=== PATIENT | female | born 1940 | race Caucasian/White ===

== ENCOUNTER 2017-08-24 14:16 | Emergency (ER) | payer OTHER, MEDICAID ==
[~2017-08-24] VITALS: Ht 165.1 cm; Wt 59.9 kg
[2017-08-24 14:28] VITALS: Ht 165.1 cm; Wt 59.9 kg
[2017-08-24 16:48] VITALS: BP 135/74
[2017-08-25] MEDS ORDERED: LASIX40 MG PO (05:06)
[2017-08-25] MEDS ORDERED: BENAZEPRIL HYDR20 M1 PO (05:06)
[2017-08-25] MEDS ORDERED: METOPROLOL SUCC50 M2 PO (05:07)
[2017-08-25] MEDS ORDERED: ALDACTONE25 MG PO (05:08)
== END 2017-08-24 16:48 | disposition home or self-care (01) ==
LOC: ED 14:16
DX: I16.0 Hypertensive urgency (principal); Z88.0 Allergy status to penicillin; Z88.5 Allergy status to narcotic agent

== ENCOUNTER 2017-08-25 02:01 | Inpatient (IN) | payer OTHER, MEDICAID ==
[~2017-08-25] VITALS: Ht 154.9 cm; Wt 56.7 kg
[2017-08-25 03:48] LABS: BASOPHIL % 0.3 % (0-2)
[2017-08-25 03:57] LABS: CALCIUM 7.8 mg/dL (8.5-10.1); CHLORIDE SERUM 98 mmol/L (98-107); CREATININE SERUM 0.9 mg/dL (0.6-1.0); GLUCOSE SERUM 89 mg/dL (74-106); POTASSIUM SERUM 4.1 mmol/L (3.5-5.1); SODIUM SERUM 128 mmol/L (136-145)
[2017-08-25 04:02] LABS: PLATELET COUNT 323 x10^3mcL (130-400)
[2017-08-25 04:06] LABS: RED CELL DISTRIBUTION WIDTH 15.3 % (11.5-14.5)
[2017-08-25 04:11] LABS: FREE T4 1.67 ng/dL (0.76-1.46)
[2017-08-25] MEDS ORDERED: LASIX40 MG PO (05:06)
[2017-08-25] MEDS ORDERED: BENAZEPRIL HYDR20 M1 PO (05:06)
[2017-08-25] MEDS ORDERED: METOPROLOL SUCC50 M2 PO (05:07)
[2017-08-25] MEDS ORDERED: ALDACTONE25 MG PO (05:08)
[2017-08-25 06:52] VITALS: BP 180/80
[2017-08-25 07:26] LABS: MAGNESIUM 1.8 mg/dL (1.8-2.4); PHOSPHOROUS 3.7 mg/dL (2.5-4.9)
[2017-08-25 07:29] LABS: CHOLESTEROL/HDL RATIO 3.8
[2017-08-25 08:07] VITALS: BP 151/82
[2017-08-25 08:13] LABS: microscopic required? YES; urine erythrocyte 1+ (NEGATIVE)
[2017-08-25 10:09] VITALS: BP 136/70
[2017-08-25 13:39] VITALS: BP 137/69
[2017-08-25 18:37] VITALS: BP 132/70
[2017-08-25 19:00] LABS: CALCIUM 7.8 mg/dL (8.5-10.1); CARBON DIOXIDE 26.6 mmol/L (21-32); CHLORIDE SERUM 100 mmol/L (98-107); CREATININE SERUM 0.9 mg/dL (0.6-1.0); GLUCOSE SERUM 108 mg/dL (74-106); SODIUM SERUM 131 mmol/L (136-145)
[2017-08-25 20:35] VITALS: BP 136/73
[2017-08-26 04:55] VITALS: BP 131/70
[2017-08-26 06:48] LABS: BASOPHIL % 0.6 % (0-2); PLATELET COUNT 310 x10^3mcL (130-400)
[2017-08-26 07:00] LABS: CALCIUM 7.2 mg/dL (8.5-10.1); CARBON DIOXIDE 21.9 mmol/L (21-32); CHLORIDE SERUM 104 mmol/L (98-107); CREATININE SERUM 0.7 mg/dL (0.6-1.0); GLUCOSE SERUM 83 mg/dL (74-106); POTASSIUM SERUM 3.9 mmol/L (3.5-5.1); SODIUM SERUM 134 mmol/L (136-145)
[2017-08-26 07:06] LABS: RED CELL DISTRIBUTION WIDTH 15.2 % (11.5-14.5)
[2017-08-26 09:18] VITALS: BP 153/72
[2017-08-26 12:16] VITALS: BP 132/72
[2017-08-26 16:59] VITALS: BP 132/72
[2017-08-26 17:01] VITALS: BP 155/114
[2017-08-29 07:32] VITALS: Ht 154.9 cm; Wt 56.7 kg
== END 2017-08-26 18:32 | disposition home or self-care (01) | DRG 622 ==
LOC: ED 02:01 → DU 04:50
PROVIDERS: Emergency Medicine; Family Medicine
PROC: 0JBN0ZZ Excision of Right Lower Leg Subcutaneous Tissue and Fascia, Open Approach (ICD-10-PCS; principal; 2017-08-26)
DX: E86.0 Dehydration (principal); N17.0 Acute kidney failure with tubular necrosis; E43 Unspecified severe protein-calorie malnutrition; L97.821 Non-pressure chronic ulcer of other part of left lower leg limited to breakdown of skin; F41.9 Anxiety disorder, unspecified; E87.1 Hypo-osmolality and hyponatremia; I16.0 Hypertensive urgency; R31.9 Hematuria, unspecified; E78.5 Hyperlipidemia, unspecified; E03.9 Hypothyroidism, unspecified; Z68.23 Body mass index [BMI] 23.0-23.9, adult
CPT/HCPCS: 83880; 84439; 97110-GP; 97116-GP; 97530-GP; J1956; J7030; Q0092

== ENCOUNTER 2017-09-17 10:23 | Emergency (ER) | payer OTHER, MEDICAID ==
[~2017-09-17] VITALS: Ht 147.3 cm; Wt 61.2 kg
[~2017-09-17 10:23] MED LIST: ALDACTONE25 MG PO; BENAZEPRIL HYDR20 M1 PO; LASIX40 MG PO; METOPROLOL SUCC50 M2 PO
[2017-09-17 10:28] VITALS: BP 121/91; Ht 147.3 cm; Wt 61.2 kg
== END 2017-09-17 11:13 | disposition home or self-care (01) ==
LOC: ED 10:23
DX: L03.90 Cellulitis, unspecified (principal); R10.32 Left lower quadrant pain; I10 Essential (primary) hypertension; M81.0 Age-related osteoporosis without current pathological fracture; Z88.0 Allergy status to penicillin; Z88.6 Allergy status to analgesic agent

== ENCOUNTER 2018-02-01 12:55 | Inpatient (IN) | payer OTHER, MEDICAID ==
[~2018-02-01] VITALS: Ht 154.9 cm; Wt 56.0 kg
[2018-02-01 13:03] VITALS: Ht 154.9 cm; Wt 56.0 kg
[2018-02-01 14:20] LABS: BASOPHIL % 0.7 % (0-2)
[2018-02-01 14:23] LABS: PLATELET COUNT 466 x10^3mcL (130-400)
[2018-02-01 14:43] LABS: CK-MB 2.5 ng/mL (0-3.6)
[2018-02-01 14:53] LABS: ALKALINE PHOSPHATASE 82 U/L (46-116); ALT/SGPT 21 U/L (14-59); AST/SGOT 23 U/L (15-37); BILIRUBIN TOTAL 0.1 mg/dL (0.20-1.00); CALCIUM 8.7 mg/dL (8.5-10.1); CARBON DIOXIDE 26.8 mmol/L (21-32); CHLORIDE SERUM 93 mmol/L (98-107); CREATININE SERUM 0.7 mg/dL (0.6-1.0); GLUCOSE SERUM 81 mg/dL (74-106); POTASSIUM SERUM 3.8 mmol/L (3.5-5.1); TOTAL PROTEIN, SERUM 6.2 g/dL (6.4-8.2)
[2018-02-01 14:55] LABS: ALBUMIN 2.4 g/dL (3.4-5.0); SODIUM SERUM 123 mmol/L (136-145)
[2018-02-01 15:51] LABS: MAGNESIUM 1.5 mg/dL (1.8-2.4); PHOSPHOROUS 4.1 mg/dL (2.5-4.9)
[2018-02-01 15:52] LABS: CHOLESTEROL/HDL RATIO 3.7
[2018-02-01 16:02] LABS: T3 TOTAL 1.41 ng/mL
[2018-02-01 16:13] LABS: FREE T4 1.55 ng/dL (0.76-1.46); FREE THYROXINE INDEX 4.3 ug/dL (1.4-4.5); T4(THYROXINE) 10.5 ug/dL (4.7-13.3)
[2018-02-01 16:21] VITALS: BP 181/81
[2018-02-01 17:40] VITALS: BP 166/79
[2018-02-01 21:03] VITALS: BP 131/62
[2018-02-01 22:26] LABS: CALCIUM 8.2 mg/dL (8.5-10.1); CARBON DIOXIDE 25.2 mmol/L (21-32); CHLORIDE SERUM 96 mmol/L (98-107); CREATININE SERUM 0.7 mg/dL (0.6-1.0); GLUCOSE SERUM 106 mg/dL (74-106); POTASSIUM SERUM 3.5 mmol/L (3.5-5.1); SODIUM SERUM 126 mmol/L (136-145)
[2018-02-01 23:39] LABS: microscopic required? YES; urine erythrocyte 1+ (NEGATIVE)
[2018-02-01 23:50] LABS: AMPHETAMINE QUAL UR NONE DETECTED (See below)
[2018-02-02 05:09] VITALS: BP 149/50
[2018-02-02 07:00] LABS: BASOPHIL % 0.8 % (0-2); PLATELET COUNT 396 x10^3mcL (130-400)
[2018-02-02 07:01] LABS: RED CELL DISTRIBUTION WIDTH 15.3 % (11.5-14.5)
[2018-02-02 07:27] LABS: CALCIUM 8.2 mg/dL (8.5-10.1); CARBON DIOXIDE 26.5 mmol/L (21-32); CHLORIDE SERUM 98 mmol/L (98-107); CREATININE SERUM 0.8 mg/dL (0.6-1.0); GLUCOSE SERUM 106 mg/dL (74-106); MAGNESIUM 1.6 mg/dL (1.8-2.4); POTASSIUM SERUM 3.6 mmol/L (3.5-5.1); SODIUM SERUM 128 mmol/L (136-145)
[2018-02-02 09:10] VITALS: BP 148/65
[2018-02-02 17:00] VITALS: BP 169/82
[2018-02-02 19:48] VITALS: BP 169/82
[2018-02-02 20:44] VITALS: BP 165/71
[2018-02-03 00:35] VITALS: BP 150/59
[2018-02-03 05:20] VITALS: BP 154/63
[2018-02-03 06:50] LABS: CALCIUM 8.3 mg/dL (8.5-10.1); CARBON DIOXIDE 24.3 mmol/L (21-32); CHLORIDE SERUM 95 mmol/L (98-107); CREATININE SERUM 0.7 mg/dL (0.6-1.0); GLUCOSE SERUM 73 mg/dL (74-106); MAGNESIUM 1.5 mg/dL (1.8-2.4); POTASSIUM SERUM 3.9 mmol/L (3.5-5.1); SODIUM SERUM 127 mmol/L (136-145)
[2018-02-03 06:53] LABS: PLATELET COUNT 439 x10^3mcL (130-400); RED CELL DISTRIBUTION WIDTH 14.8 % (11.5-14.5)
[2018-02-03 08:19] VITALS: BP 123/60
[2018-02-03 09:31] LABS: ATYPICAL LYMPH 1 %; BAND NEUTROPHIL 1 % (0-10); BASOPHIL 0 % (0-2); MONOCYTE 6 % (0-7); SEGMENTED NEUTROPHILS 63 % (37-75)
[2018-02-03 09:32] LABS: rbc morphology (normal/abnorm) ABNORMAL (NORMAL)
[2018-02-03 09:33] LABS: PLATELET MORPHOLOGY PLATELETS NORMAL
[2018-02-03 16:35] VITALS: BP 118/62
[2018-02-03 20:44] VITALS: BP 131/99
[2018-02-04 05:30] VITALS: BP 133/69
[2018-02-04 06:44] LABS: CALCIUM 8.2 mg/dL (8.5-10.1); CARBON DIOXIDE 26.3 mmol/L (21-32); CHLORIDE SERUM 97 mmol/L (98-107); GLUCOSE SERUM 90 mg/dL (74-106); MAGNESIUM 1.6 mg/dL (1.8-2.4); POTASSIUM SERUM 4.1 mmol/L (3.5-5.1); SODIUM SERUM 129 mmol/L (136-145)
[2018-02-04 06:50] LABS: BASOPHIL % 0.2 % (0-2)
[2018-02-04 07:25] LABS: PLATELET COUNT 451 x10^3mcL (130-400); RED CELL DISTRIBUTION WIDTH 15.1 % (11.5-14.5)
[2018-02-04 07:49] VITALS: BP 118/66
[2018-02-04 13:00] VITALS: BP 110/61
[2018-02-04 15:58] VITALS: BP 142/65
[2018-02-04 20:42] VITALS: BP 112/61
[2018-02-05 05:20] VITALS: BP 102/42
[2018-02-05 06:34] LABS: CALCIUM 8.1 mg/dL (8.5-10.1); CARBON DIOXIDE 25.3 mmol/L (21-32); CHLORIDE SERUM 98 mmol/L (98-107); CREATININE SERUM 1.4 mg/dL (0.6-1.0); GLUCOSE SERUM 85 mg/dL (74-106); MAGNESIUM 1.8 mg/dL (1.8-2.4); PHOSPHOROUS 5.8 mg/dL (2.5-4.9); POTASSIUM SERUM 4.4 mmol/L (3.5-5.1); SODIUM SERUM 128 mmol/L (136-145)
[2018-02-05 07:12] LABS: PLATELET COUNT 430 x10^3mcL (130-400); RED CELL DISTRIBUTION WIDTH 15.2 % (11.5-14.5)
[2018-02-05 09:05] VITALS: BP 103/71
[2018-02-05 14:40] LABS: BAND NEUTROPHIL 12 % (0-10); MONOCYTE 11 % (0-7); SEGMENTED NEUTROPHILS 40 % (37-75)
[2018-02-05 14:41] LABS: PLATELET MORPHOLOGY PLATELETS INCREASED; rbc morphology (normal/abnorm) ABNORMAL (NORMAL)
[2018-02-05 17:43] VITALS: BP 119/65
[2018-02-05 21:38] VITALS: BP 133/74
[2018-02-06 05:18] VITALS: BP 128/61
[2018-02-06 06:46] LABS: RED CELL DISTRIBUTION WIDTH 14.2 % (11.5-14.5)
[2018-02-06 07:09] LABS: CALCIUM 8.5 mg/dL (8.5-10.1); CARBON DIOXIDE 23.4 mmol/L (21-32); CHLORIDE SERUM 97 mmol/L (98-107); CREATININE SERUM 1.3 mg/dL (0.6-1.0); GLUCOSE SERUM 79 mg/dL (74-106); SODIUM SERUM 129 mmol/L (136-145)
[2018-02-06 08:40] VITALS: BP 139/74
[2018-02-06 09:00] VITALS: BP 96/35
[2018-02-06] MEDS ORDERED: CLINDAMYCIN HC300 MG PO (10:02)
[2018-02-06 11:26] LABS: ATYPICAL LYMPH 2 %; BAND NEUTROPHIL 0 % (0-10); BASOPHIL 0 % (0-2); MONOCYTE 3 % (0-7); SEGMENTED NEUTROPHILS 65 % (37-75)
[2018-02-06 11:27] LABS: PLATELET MORPHOLOGY PLATELETS NORMAL; rbc morphology (normal/abnorm) ABNORMAL (NORMAL)
[2018-02-06 12:33] LABS: PLATELET COUNT 513 x10^3mcL (130-400)
[2018-02-06 14:56] VITALS: BP 139/74
== END 2018-02-06 15:37 | disposition home or self-care (01) | DRG 602 ==
LOC: ED 12:55 → DU 15:12 → MU 15:12 → DU 16:05 → MU 17:00
PROVIDERS: Emergency Medicine; Internal Medicine
DX: L03.115 Cellulitis of right lower limb (principal); N17.0 Acute kidney failure with tubular necrosis; E43 Unspecified severe protein-calorie malnutrition; E87.1 Hypo-osmolality and hyponatremia; D68.69 Other thrombophilia; I87.8 Other specified disorders of veins; E11.65 Type 2 diabetes mellitus with hyperglycemia; I10 Essential (primary) hypertension; E83.42 Hypomagnesemia; E78.49 Other hyperlipidemia; D64.9 Anemia, unspecified; M71.21 Synovial cyst of popliteal space [Baker], right knee; J45.909 Unspecified asthma, uncomplicated; M19.90 Unspecified osteoarthritis, unspecified site; M81.0 Age-related osteoporosis without current pathological fracture; Z68.24 Body mass index [BMI] 24.0-24.9, adult
CPT/HCPCS: 82962; 83880; 84439; 90658; 97116-GP; 97530-GP; J1644; J1940; J3490; J7030; J7040; J7050; J7620; J7626; Q0092; Q0163

== ENCOUNTER 2020-06-04 12:59 | Emergency (ER) | payer OTHER, MEDICAID ==
[~2020-06-04] VITALS: Ht 147.3 cm; Wt 45.4 kg
[~2020-06-04 12:59] MED LIST changes: +CLINDAMYCIN HC300 MG PO
[2020-06-04 13:02] VITALS: Ht 147.3 cm; Wt 45.4 kg
[2020-06-04] MEDS ORDERED: TES100 PO (14:15)
[2020-06-04 14:28] VITALS: BP 143/84
== END 2020-06-04 14:28 | disposition home or self-care (01) ==
LOC: ED 12:59
DX: J06.9 Acute upper respiratory infection, unspecified (principal); J45.909 Unspecified asthma, uncomplicated; I10 Essential (primary) hypertension; M19.90 Unspecified osteoarthritis, unspecified site; Z20.822 Contact with and (suspected) exposure to COVID-19; Z88.0 Allergy status to penicillin; Z88.5 Allergy status to narcotic agent
CPT/HCPCS: U0003